=== PATIENT | female | born 1940 | race Caucasian/White ===

== ENCOUNTER 2021-09-12 14:07 | Emergency (ER) | payer MEDICARE, BC ==
[~2021-09-12] VITALS: Ht 175.3 cm; Wt 87.7 kg
[2021-09-12 14:10] VITALS: BP 132/55
--- NOTE | 2021-09-12 14:11 | PHYS DOC ---
General Adult HPI: HPI: Patient is a 81-year-old female brought in by ambulance for evaluation after a fall. She fell at home, just prior to arrival. She slipped on some wet leaves, as she was trying to shake out a sheet, because she had just cut her 's hair. She fell down 1 step, she landed on her left forearm and left wrist. She has swelling and a contusion of her dorsal left wrist. She denies previous injury to this upper extremity. She is right-hand dominant. She also did hit the side of her scalp. She is a scalp contusion and abrasion. She believes her tetanus is up-to-date within the last 3 to 4 years. She denies loss of consciousness. She denies any premonitory symptoms. She denies dizziness, vertigo, headache, neck pain, back pain. Denies numbness or tingling. Denies chest pain, dyspnea, palpitations. She denies abdominal pain, nausea or vomiting symptoms. She denies hip pain or lower extremity pain. Review of Systems: Review of Systems: Constitutional: Denies fever or chills Eyes: Denies change in visual acuity HENT: Denies nasal congestion or sore throat Respiratory: Denies cough or shortness of breath Cardiovascular: Denies chest pain or edema GI: Denies abdominal pain, nausea, vomiting : Denies urinary symptom Musculoskeletal: Denies neck pain or back pain. Reports left wrist pain and swelling. Reports left forearm. Integument: Soft tissue swelling and bruising of the left wrist. Abrasion of the left scalp Neurologic: Denies headache, focal weakness or sensory changes, denies syncope or near syncope. Denies dizziness or vertigo Psychiatric: Denies depression or anxiety Physical Exam: PE: Constitutional: Well developed, well nourished, no acute distress, non-toxic appearance. [] HENT: Superficial, small abrasion with very mild soft tissue swelling of the left parietal scalp. No tenderness. No step-offs or crepitus. No large cephalhematoma. External ears are normal bilaterally. Canals are normal bilaterally. TMs are clear bilaterally, no hemotympanum. No otorrhea. Nares are patent clear without rhinorrhea epistaxis. No dental trauma noted. No facial edema or facial trauma noted. Eyes: PERRL, EOMI, conjunctiva normal, no discharge. No nystagmus. No periorbital edema or evidence of trauma. No orbital trauma. Neck: Normal range of motion, no tenderness, supple, no stridor. Midline tenderness or step-offs. Cardiovascular:Heart rate regular rhythm, 2 radial +2 posterior tibial pulses bilaterally. Lungs & Thorax: Bilateral breath sounds clear to auscultation, no rales, rhonchi or wheezes. Equal chest rise. No evidence of chest or thorax trauma Abdomen: Abdomen is obese, soft, nondistended, nontender to palpation. No evidence of abdominal trauma. Skin: Warm, dry, no erythema, small soft tissue contusion of the left dorsal wrist. Superficial abrasion and underlying small soft tissue swelling of the left parietal scalp Back: No midline tenderness or step-offs. Full range of motion. No deformity Extremities: Bilateral, symmetric 1+ nonpitting lower extremity/ankle edema. Pelvis is stable. No tenderness of bilateral hips, knees, lower legs, ankles or feet. There is localized area of soft tissue swelling and contusion of the dorsal left wrist, overlying the snuffbox area. Minimal soft tissue tenderness. No bony tenderness. No wrist drop. No limited range of motion of the left wrist, full flexion extension. Normal sandblast carver strength. Mild soft tissue tenderness of the mid dorsal left forearm. No left forearm formally, no bony tenderness. Full and painless pronation and supination of the left forearm. Full painless active and passive range of motion in all directions of the left shoulder and left arm. Clavicle is nontender. Neurologic: Alert and oriented X 3, normal motor function, normal sensory function, no focal deficits noted. [] Psychologic: Affect normal, judgement normal, mood normal. [] EKG: EKG: [] Radiology/Procedures: Radiology/Procedures: IMAGING REPORT Signed PATIENT: EDMUND BRADLEY ACCOUNT: [id number] : 1940 LOCATION: ER AGE: 81 SEX: F EXAM STATUS: REG ER ORD. PHYSICIAN: JEWEL GERONIMO DO REASON: fall PROCEDURE: CT HEAD AND CERVICAL SPINE WO Examination: CT head and cervical spine without contrast CT HEAD INDICATION: History of fall, neck pain COMPARISON: None Available. Exposure: One or more of the following individualized dose reduction techniques were utilized for this examination: 1. Automated exposure control 2. Adjustment of the mA and/or kV according to patient size 3. Use of iterative reconstruction technique TECHNIQUE: 5 mm contiguous axial images were obtained from the skull base to the vertex in both bone and soft tissue algorithm. FINDINGS: Mild bilateral periventricular white matter hypodensities likely chronic small vessel ischemic disease. 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 No evidence of acute intracranial hemorrhage. No extra-axial fluid collections. No mass effect or midline shift. Ventricular size is appropriate. Basal cisterns are patent. No fractures identified.Bowling-white differentiation is preserved.Globes and orbits are within normal limits. Mild mucosal thickening bilateral ethmoidal sinuses. CT CERVICAL SPINE INDICATION: History of fall, neck pain COMPARISON: None Available. Technique: 2.5 mm contiguous axial images were obtained from the skull base through the cervicothoracic junction in both bone and soft tissue algorithm. Additional sagittal and coronal reconstructions were also performed. FINDINGS: Vertebral body height and alignment are maintained. Cervical lordosis is preserved. The lateral masses of C1 are aligned upon C2. No fractures identified. The bony canal is patent throughout. Moderate degenerative disc height loss identified in the cervical spine most at C2-C3, C5-C6, C6-C7 vertebral levels with small posterior disc bulges. The bilateral facets are well aligned. The paraspinous soft tissues are unremarkable. Visualized intracranial contents are unremarkable. Lung apices are clear. IMPRESSION: 1. No acute intracranial findings. 2. 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 3. No acute fracture cervical spine. 4. Moderate degenerative changes cervical spine. Electronically signed by: Rodrigo Waters MD (09/12/2021 4:29 PM) [id number] IMAGING REPORT Signed PATIENT: EDMUND BRADLEY ACCOUNT: [id number] : 1940 LOCATION: ER AGE: 81 SEX: F EXAM STATUS: REG ER ORD. PHYSICIAN: JEWEL GERONIMO DO REASON: fall, pain PROCEDURE: WRIST 3V LEFT Two-view left forearm AP lateral views and 3 view left wrist AP lateral and oblique views HISTORY: Pain status post fall 3 view left wrist: There is a transverse fracture of the distal radius with mild posterior angulation and mild impaction. The remaining visualized osseous structures appear normal. Two-view left forearm: Fracture of the distal radius is again seen. The remaining visualized osseous structures appear grossly intact. IMPRESSION: Acute fracture of the distal radius. Electronically signed by: Clint Loya III, MD (09/12/2021 5:01 PM) [facility] DICTATED AND SIGNED BY: CLINT LOYA III, MD DATE: 09/12/211655 CC: MINI ESCOBAR MD; JEWEL GERONIMO DO ~ Heart Score: C/O Chest Pain: No Risk Factors: Risk Factors: DM, Current or recent (<one month) smoker, HTN, HLP, family histo ry of CAD, obesity. Risk Scores: Score 0 - 3: 2.5% MACE over next 6 weeks - Discharge Home Score 4 - 6: 20.3% MACE over next 6 weeks - Admit for Clinical Observation Score 7 - 10: 72.7% MACE over next 6 weeks - Early Invasive Strategies Course & Med Decision Making: Course & Med Decision Making Pertinent Labs and Imaging studies reviewed. (See chart for details) The patient repeatedly declined pain medication initially, though she did agree to take a dose of Tylenol prior to discharge. She is given 1000 mg of Tylenol. She is placed in a sugar-tong splint. Post splint exam is performed. I have discussed the findings, differential diagnosis and plan of care with the patient. I told her to contact her PCP on Tuesday for follow-up. She reports that she prefers to see an orthopedist at [facility]. She is given information to follow-up with [facility]. I have discussed all of the findings, differential diagnosis and plan of care with her. She feels comfortable to plan for discharge home. She has a cane that she can use to help with ambulation. Strict return precautions are given. She verbalizes understanding. Naheed Disclaimer: Naheed Disclaimer: This electronic medical record was generated, in whole or in part, using a voice recognition dictation system. Departure Departure: Impression: Primary Impression: Fall at home Qualified Codes: W19.XXXA - Unspecified fall, initial encounter; Y92.009 - Unspecified place in unspecified non-institutional (private) residence as the place of occurrence of the external cause Additional Impressions: Closed fracture of left distal radius Qualified Codes: S52.502A - Unspecified fracture of the lower end of left r adius, initial encounter for closed fracture Scalp abrasion Qualified Codes: S00.01XA - Abrasion of scalp, initial encounter Disposition: HOME / SELF CARE / HOMELESS Condition: STABLE Referrals: MINI ESCOBAR MD (PCP) Patient Instructions: Abrasions, Facial or Scalp Contusion, Fall Prevention and Home Safety, Wrist Fracture Scripts Hydrocodone/Acetaminophen (Hydrocodone-Acetamin 5-325 mg) 1 Each Tablet 1 EACH PO PRN Q6HRS PRN for PAIN, #15 TAB Prov: JEWEL GERONIMO DO 09/12/21 JEWEL GERONIMO DO September 12, 2021 14:11
--- NOTE | 2021-09-12 16:32 | RAD ---
Examination: CT head and cervical spine without contrast CT HEAD INDICATION: History of fall, neck pain COMPARISON: None Available. Exposure: One or more of the following individualized dose reduction techniques were utilized for thi s examination: 1. Automated exposure control 2. Adjustment of the mA and/or kV according to patient size 3. Use of iterative reconstruction technique TECHNIQUE: 5 mm contiguous axial images were obtained from the skull base to the vertex in both bone and soft tissue algorithm. FINDINGS: Mild bilateral periventricular white matter hypodensities likely chronic small vessel ischemic diseas e. 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 No evidence of acute intracranial hemorrhage. No extra-axial fluid collections. No mass effect or midline shift. Ventricular size is appropriate. Basal cisterns are patent. No fractures identified.Bowling-white differentiation is preserved.Globes and orbits are within normal l imits. Mild mucosal thickening bilateral ethmoidal sinuses. CT CERVICAL SPINE INDICATION: History of fall, neck pain COMPARISON: None Available. Technique: 2.5 mm contiguous axial images were obtained from the skull base through the cervicothorac ic junction in both bone and soft tissue algorithm. Additional sagittal and coronal reconstructions were also performed. FINDINGS: Vertebral body height and alignment are maintained. Cervical lordosis is preserved. The l ateral masses of C1 are aligned upon C2. No fractures identified. The bony canal is patent throughout. Moderate degenerative disc height loss identified in the cervical spine most at C2-C3, C5-C6, C6-C7 v ertebral levels with small posterior disc bulges. The bilateral facets are well aligned. The paraspinous soft tissues are unremarkable. Visualized intracranial contents are unremarkable. L rocio apices are clear. IMPRESSION: 1. No acute intracranial findings. 2. 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 3. No acute fracture cervical spine. 4. Moderate degenerative changes cervical spine. Electronically signed by: Rodrigo Waters MD (09/12/2021 4:29 PM) [id number]
--- NOTE | 2021-09-12 17:03 | RAD ---
Two-view left forearm AP lateral views and 3 view left wrist AP lateral and oblique views HISTORY: Pain status post fall 3 view left wrist: There is a transverse fracture of the distal radius with mild posterior angulation and mild impaction . The remaining visualized osseous structures appear normal. Two-view left forearm: Fracture of the distal radius is again seen. The remaining visualized osseous structures appear gross ly intact. IMPRESSION: Acute fracture of the distal radius. Electronically signed by: Hans Mar III, MD (09/12/2021 5:01 PM) [facility]
[2021-09-12] MEDS ORDERED: HYDR-2759 PO (17:24)
[2021-09-12] MEDS ORDERED: ACETAMINOPHEN 500 MG TABLET PO ONE (18:00)
== END 2021-09-12 17:35 | disposition home or self-care (01) ==
LOC: ER 14:07
DX: S52.502A Unspecified fracture of the lower end of left radius, initial encounter for closed fracture (principal); S00.01XA Abrasion of scalp, initial encounter; W18.39XA Other fall on same level, initial encounter; Y93.89 Activity, other specified; Y92.098 Other place in other non-institutional residence as the place of occurrence of the external cause; Y99.8 Other external cause status
CPT/HCPCS: 29125; 70450; 72125; 73090; 73110; 99284